=== PATIENT | female | born 1945 | race Hispanic/Latino ===

== ENCOUNTER 2017-06-03 13:44 | Emergency (ER) | payer MEDICARE ==
[~2017-06-03] VITALS: Ht 157.5 cm; Wt 62.1 kg
[~2017-06-03 13:44] MED LIST: ASPIRIN81 MG PO; COLACE100 MG PO; PEPCID20 MG PO; SENNA LAX8.6 MG PO; TEMAZEPAM15 MG PO; ZOFRAN ODT4 MG PO
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
[2017-06-03 15:15] VITALS: BP 136/78
== END 2017-06-03 15:00 | disposition home or self-care (01) ==
LOC: FSED 13:44
DX: R53.1 Weakness (principal); R20.9 Unspecified disturbances of skin sensation; M79.662 Pain in left lower leg; M79.672 Pain in left foot; R26.2 Difficulty in walking, not elsewhere classified; M62.838 Other muscle spasm
CPT/HCPCS: 70450; 80053; 85025; 99283

== ENCOUNTER 2017-09-14 13:39 | Emergency (ER) | payer MEDICARE ==
[~2017-09-14] VITALS: Ht 157.5 cm; Wt 63.5 kg
[2017-09-14] MEDS ORDERED: GABAPENTIN100 MG PEG (14:11)
[2017-09-14] MEDS ORDERED: TETANUS/DIPHTHERIA TOX ADULT 0.5 ML SYR IM ONE (14:45)
== END 2017-09-14 15:26 | disposition home or self-care (01) ==
LOC: FSED 13:39
DX: S80.212A Abrasion, left knee, initial encounter (principal); S80.211A Abrasion, right knee, initial encounter; W01.0XXA Fall on same level from slipping, tripping and stumbling without subsequent striking against object, initial encounter; Y93.01 Activity, walking, marching and hiking; Y92.481 Parking lot as the place of occurrence of the external cause; G62.9 Polyneuropathy, unspecified
CPT/HCPCS: 90471; 90714; 99284

== ENCOUNTER 2018-04-29 12:08 | Emergency (ER) | payer MEDICARE ==
[~2018-04-29] VITALS: Ht 157.5 cm; Wt 63.5 kg
[~2018-04-29 12:08] MED LIST changes: +GABAPENTIN100 MG PEG
[2018-04-29] MEDS ORDERED: MAGNESIUM/ALUMINUM/SIMETHICONE 30 ML UDC PO ONE (12:45)
[2018-04-29] MEDS ORDERED: ASPIRIN 325 MG TAB EC PO STA (12:45)
[2018-04-29] MEDS ORDERED: LIDOCAINE VISC 2% SOLN 15 ML UDC PO ONE (12:45)
--- NOTE | 2018-04-29 13:13 | Diagnostic Imaging Report ---
EXAMINATION: CXR 2 VIEW - HOPD INDICATION: Chest pain. COMPARISON: Chest radiograph 01/05/2017. FINDINGS: TUBES and LINES: None. LUNGS: Lungs are well inflated. Lungs are clear. There is no evidence of pneumonia or pulmonary edema. PLEURA: No pleural effusion or pneumothorax. HEART AND MEDIASTINUM: The cardiomediastinal silhouette is unremarkable. Atherosclerotic calcifications of the aorta. BONES AND SOFT TISSUES: No acute osseous abnormality. Diffuse osteopenia. UPPER ABDOMEN: No free air under the diaphragm. IMPRESSION: No acute radiographic abnormality. Signed by: Dr. Rufus Pena MD on 04/29/2018 1:09 PM
== END 2018-04-29 14:02 | disposition home or self-care (01) ==
LOC: FSED 12:08
DX: R07.89 Other chest pain (principal); K74.60 Unspecified cirrhosis of liver; B19.20 Unspecified viral hepatitis C without hepatic coma
CPT/HCPCS: 71046; 80053; 82553; 84484; 85025; 93005; 99284

== ENCOUNTER 2018-07-12 18:20 | Observation (INO) | payer MEDICARE ==
[~2018-07-12] VITALS: Ht 154.9 cm; Wt 56.7 kg
--- NOTE | 2018-07-12 01:23 | NUR ---
PT IS TRANSFERRED FROM [facility] .PT IS AOX3 AMBULATE .PT HAS RT NECK SWELLING .DENIES PAIN AT THIS TIME .PT IS RT AC 22 G .RESPIRATIONS ARE EVEN AND UNLABORED .SKIN WARM AND DRY TO TOUCH .ASSESSMENT DONE .SIDE RAILS UP .BED LOWEST POSITION .CALL LIGHT WITH IN REACH .CONTINUE TO MONITOR
[2018-07-12] MEDS ORDERED: KETOROLAC TROMETHAMINE 30 MG/ML VIAL IV STA (18:38)
[2018-07-12] MEDS ORDERED: ONDANSETRON HCL INJ 2MG/ML 2ML 2 MG/ML VIAL IV STA (18:38)
--- NOTE | 2018-07-12 18:52 | NUR ---
REPORT TO ROBERT LINN
[2018-07-12] MEDS ORDERED: SODIUM CHLORIDE 0.9% 1000 ML BAG IV STA (19:02)
[2018-07-12] MEDS ORDERED: CLINDAMYCIN 300MG 50 ML IV STA (19:49)
--- NOTE | 2018-07-12 20:18 | Diagnostic Imaging Report ---
Examination:CT CERVICAL SPINE WITH CONTRAST - HOPD History: Right neck swelling Comparison studies: None Technique: Axial images from the skull base to the thoracic inlet Coronal and sagittal reformatted images. Dose modulation, iterative reconstruction, and/or weight based adjustment of the mA/kV was utilized to reduce the radiation dose to as low as reasonably achievable. Intravenous contrast: 100mL of Isovue 370. Findings: Soft tissues: No abnormalities. Aerodigestive tract: No abnormality. Lymph nodes: No radiographically significant adenopathy. Vessels: Arteries and veins are patent. Thyroid gland: Normal in size and homogeneous. Submandibular glands: Normal in size and homogeneous on the left. Enlarged right gland with intra and extraglandular ductal dilation with several stones in the hilus of the gland and proximal and distal ducts. Parotid glands: Normal in size and homogeneous. Orbits: No abnormalities. Paranasal sinuses: Clear. Temporal bones: No abnormalities. Skull base and facial bones: Intact. Cervical spine: No disc bulge or herniation or foraminal or canal stenosis. Visualized lung apices: No abnormalities. IMPRESSION: Right submandibular sialolithiasis. Signed by: Dr. Rossy Devries M.D. on 07/12/2018 8:14 PM
[2018-07-12] MEDS ORDERED: ACETAMINOPHEN/CODEINE 300MG - 30MG TAB PO PRN (20:45)
[2018-07-12] MEDS ORDERED: ONDANSETRON HCL INJ 2MG/ML 2ML 2 MG/ML VIAL IV PRN (20:45)
[2018-07-12] MEDS: CLINDAMYCIN 300MG 50 ML IV SCH (21:08)
[2018-07-12 22:02] VITALS: BP 157/75
[2018-07-12] MEDS: SODIUM CHLORIDE 0.9% 1000ML 1,000 ML IV SCH (23:00)
[2018-07-13 00:59] VITALS: BP 157/75
[2018-07-13] MEDS: CLINDAMYCIN 300MG 50 ML IV SCH ×2 (03:11→09:18)
[2018-07-13 04:00] VITALS: BP 121/65
[2018-07-13] MEDS: SODIUM CHLORIDE 0.9% 1000ML 1,000 ML IV SCH (04:38)
--- NOTE | 2018-07-13 06:07 | NUR ---
PT RESTING .DENIES PAIN .CALL LIGHT WITH IN REACH .CONTINUE TO MONITOR
--- NOTE | 2018-07-13 07:15 | NUR ---
REPORT GIVEN TO THE ONCOMING NURSE
[2018-07-13 07:24] LABS: BASOPHILS % 0.4 % (0.0-1.0); EOSINOPHILS # (AUTO) 0.2 (0.0-0.4); HEMATOCRIT 32.1 % (34.2-44.1); HEMOGLOBIN 10.7 g/dL (12.0-16.0); LYMPHOCYTES # (AUTO) 1.3 (1.0-3.2); LYMPHOCYTES % 17.3 % (18.0-39.1); MEAN CORPUSCULAR HEMOGLOBIN 30.7 pg (28-32); MEAN CORPUSCULAR HGB CONC 33.3 g/dL (31-35); MEAN CORPUSCULAR VOLUME 92.2 fL (81-99); MONOCYTES # (AUTO) 0.7 (0.2-0.8); MONOCYTES % 8.9 % (4.4-11.3); NEUTROPHILS # (AUTO) 5.3 (2.1-6.9); NEUTROPHILS % 71.1 % (38.7-80.0); PLATELET COUNT 129 x10e3/uL (140-360); RED BLOOD COUNT 3.48 x10e6/uL (3.6-5.1); RED CELL DISTRIBUTION WIDTH 13.3 % (11.7-14.4)
[2018-07-13 07:37] LABS: ANION GAP 10.3 mmol/L (8-16); BLOOD UREA NITROGEN 11 mg/dL (7-26); BUN/CREATININE RATIO 15 (6-25); CALCIUM 8.8 mg/dL (8.4-10.2); CARBON DIOXIDE 24 mmol/L (22-29); CHLORIDE 106 mmol/L (98-107); CREATININE, SERUM 0.71 mg/dL (0.57-1.11); EST GLOMERULAR FILTRATION RATE > 60 ML/MIN (60-); GLUCOSE 112 mg/dL (74-118); POTASSIUM 3.3 mmol/L (3.5-5.1); SODIUM 137 mmol/L (136-145)
[2018-07-13 08:01] VITALS: BP 125/58
--- NOTE | 2018-07-13 08:12 | NUR ---
patient siting up in bed eating break fast, Alert with no distress, call light in reach
[2018-07-13 09:41] VITALS: BP 125/58
[2018-07-13] MEDS ORDERED: POTASSIUM CHLORIDE 20 MEQ TAB CR PO STA (11:08)
[2018-07-13] MEDS ORDERED: ACETAMINOPHEN 325 MG TAB PO PRN (11:15)
[2018-07-13] MEDS ORDERED: LACTOBACILLUS ACIDOPHILUS CAPSULE PO SCH (11:15)
[2018-07-13] MEDS ORDERED: TYLENOL WITH C1 EACH PO (11:55)
[2018-07-13] MEDS ORDERED: CLINDAMYCIN HC150 MG PO (11:56)
[2018-07-13 11:57] VITALS: BP 128/64
[2018-07-13] MEDS ORDERED: ACIDOPHILUS1 EAC1 PO (11:57)
--- NOTE | 2018-07-13 14:21 | NUR ---
Patient discharged Home, Alert with no distress, prescription given and verbalized understanding, IV canula removed with tip intact, no ss of infiltration noted, denies any pain or SOB, Daughter at bed side to pick her.
--- NOTE | 2018-07-14 06:56 | Discharge Summary ---
PRIMARY CARE DOCTOR: Dr. An Jj. FINAL DIAGNOSIS: Acute sialadenitis, resolving. SECONDARY DIAGNOSES: 1. Hep C cirrhosis, treated. 2. Hypokalemia. CONSULTANTS: None. PROCEDURE/STUDIES: Performed neck CT. HISTORY: Per H and P. HOSPITAL COURSE: The patient was monitored overnight. She got better and was deemed stable for discharge home. Her hypokalemia was repleted. The patient will go home on clindamycin for four more days to complete a five day course, Tylenol No.3, 20 pills, no refills were prescribed as well along with lactobacillus. The patient will follow up with her primary care doctor in a week. I have also updated her primary care doctor about this hospitalization. CONDITION ON DISCHARGE: Improved. DISCHARGE MEDICATIONS: Please see medication reconciliation form. MD RUDY Rick/CAITY /[id number] cc: [facility]
== END 2018-07-13 14:59 | disposition home or self-care (01) ==
LOC: FSED 18:20 → INTOOBSV 20:41 → ERHOLD 20:41 → MED/SURG3 22:03
PROVIDERS: ADMIT Internal Medicine; ATTEND Internal Medicine
DX: K11.21 Acute sialoadenitis (principal); K11.5 Sialolithiasis; Z88.1 Allergy status to other antibiotic agents; Z88.2 Allergy status to sulfonamides; Z88.8 Allergy status to other drugs, medicaments and biological substances; K74.60 Unspecified cirrhosis of liver; Z86.19 Personal history of other infectious and parasitic diseases; E87.6 Hypokalemia
CPT/HCPCS: 36415; 72126; 80048 ×2; 80076; 81003; 85025 ×2; 87040; 96360; 96361; 99284; G0378 ×2; J1885; J2405; J7030 ×2

== ENCOUNTER 2019-02-09 09:58 | Emergency (ER) | payer MEDICARE ==
[~2019-02-09] VITALS: Ht 154.9 cm; Wt 56.7 kg
[~2019-02-09 09:58] MED LIST changes: +ACIDOPHILUS1 EAC1 PO; +CLINDAMYCIN HC150 MG PO; +TYLENOL WITH C1 EACH PO
[2019-02-09] MEDS ORDERED: SODIUM CHLORIDE 0.9% 1000ML 1,000 ML IV SCH (10:15)
[2019-02-09] MEDS ORDERED: PANTOPRAZOLE 40 MG 10ML VIAL IV ONE (10:30)
[2019-02-09] MEDS ORDERED: ONDANSETRON HCL INJ 2MG/ML 2ML 2 MG/ML VIAL IV ONE (10:30)
[2019-02-09 10:41] LABS: BASOPHILS % 0.6 % (0.0-1.0); EOSINOPHILS # (AUTO) 0.2 (0.0-0.4); EOSINOPHILS % 4.3 % (0.0-6.0); HEMATOCRIT 36.9 % (34.2-44.1); HEMOGLOBIN 12.5 g/dL (12.0-16.0); LYMPHOCYTES # (AUTO) 1.3 (1.0-3.2); LYMPHOCYTES % 23.9 % (18.0-39.1); MEAN CORPUSCULAR HGB CONC 33.9 g/dL (31-35); MEAN CORPUSCULAR VOLUME 91.6 fL (81-99); MONOCYTES # (AUTO) 0.3 (0.2-0.8); MONOCYTES % 5.8 % (4.4-11.3); NEUTROPHILS # (AUTO) 3.5 (2.1-6.9); PLATELET COUNT 152 x10e3/uL (140-360); RED BLOOD COUNT 4.03 x10e6/uL (3.6-5.1); RED CELL DISTRIBUTION WIDTH 12.8 % (11.7-14.4)
[2019-02-09 10:42] LABS: BILIRUBIN,URINE NEGATIVE (NEGATIVE); CLARITY,URINE CLEAR (CLEAR); COLOR,URINE YELLOW (YELLOW); KETONES,URINE NEGATIVE (NEGATIVE); LEUKOCYTE ESTERASE ,URINE NEGATIVE (NEGATIVE); NITRITE,URINE NEGATIVE (NEGATIVE); PROTEIN,URINE DIPSTICK NEGATIVE (NEGATIVE); URINE UROBILINOGEN 0.2 mg/dL (0.2 - 1)
[2019-02-09 10:50] LABS: INR 0.99; PROTHROMBIN TIME 13.6 seconds (11.9-14.5)
[2019-02-09 10:51] LABS: PARTIAL THROMBOPLASTIN TIME 27.4 seconds (23.8-35.5)
[2019-02-09 11:01] LABS: RBC,URINE 0-5 /HPF (0-5); WBC,URINE (MAN) 0-5 /HPF (0-5)
[2019-02-09 11:01] LABS: ALANINE AMINOTRANSFERASE 18 IU/L (0-55); ALBUMIN 3.9 g/dL (3.5-5.0); ALBUMIN/GLOBULIN RATIO 1.1 (0.8-2.0); ALKALINE PHOSPHATASE 67 IU/L (40-150); AMYLASE 82 U/L (25-125); ANION GAP 14.7 mmol/L (8-16); BLOOD UREA NITROGEN 11 mg/dL (7-26); BUN/CREATININE RATIO 15 (6-25); CALCIUM 9.3 mg/dL (8.4-10.2); CARBON DIOXIDE 23 mmol/L (22-29); CHLORIDE 103 mmol/L (98-107); CREATINE KINASE 61 IU/L (29-168); CREATININE, SERUM 0.72 mg/dL (0.57-1.11); EST GLOMERULAR FILTRATION RATE > 60 ML/MIN (60-); GLUCOSE 103 mg/dL (74-118); LIPASE 30 U/L (8-78); MAGNESIUM 1.7 MG/DL (1.3-2.1); POTASSIUM 3.7 mmol/L (3.5-5.1); SODIUM 137 mmol/L (136-145)
[2019-02-09 11:02] LABS: BACTERIA,URINE FEW /HPF; EPITHELIAL CELLS,URINE FEW /LPF
--- NOTE | 2019-02-09 11:12 | NUR ---
ASSISTED TITO Montero WITH RECTAL EXAM
--- NOTE | 2019-02-09 11:40 | Diagnostic Imaging Report ---
EXAMINATION: CHEST SINGLE (PORTABLE) INDICATION: Nausea, vomiting, diarrhea. COMPARISON: Chest radiograph 04/29/2018. FINDINGS: TUBES and LINES: None. LUNGS: Lungs are well inflated. Mild patchy right basilar opacity, likely atelectasis. There is no evidence of lobar pneumonia or pulmonary edema. PLEURA: No pleural effusion or pneumothorax. HEART AND MEDIASTINUM: The cardiomediastinal silhouette is unremarkable. There are atherosclerotic calcifications within the aorta. BONES AND SOFT TISSUES: No acute osseous abnormality. Diffuse osteopenia. UPPER ABDOMEN: No free air under the diaphragm. IMPRESSION: No acute radiographic abnormality. Signed by: Dr. Rufus Pena MD on 02/09/2019 11:36 AM
[2019-02-09 13:02] VITALS: BP 129/66
== END 2019-02-09 13:03 | disposition home or self-care (01) ==
LOC: ER 09:58
DX: R11.2 Nausea with vomiting, unspecified (principal); R19.7 Diarrhea, unspecified; R10.33 Periumbilical pain; K76.89 Other specified diseases of liver
CPT/HCPCS: 36415; 71045; 80053; 81001; 82150; 82270; 82550; 82553; 83690; 83735; 83880; 84484; 85025; 85610; 85730; 86850; 86900; 87086; 93005; 99284; C9113; J7030

== ENCOUNTER 2020-04-22 13:06 | Emergency (ER) | payer MEDICARE ==
[~2020-04-22] VITALS: Ht 154.9 cm; Wt 56.7 kg
== END 2020-04-22 16:22 | disposition home or self-care (01) ==
LOC: FSED 13:40
DX: S00.83XA Contusion of other part of head, initial encounter (principal); S40.011A Contusion of right shoulder, initial encounter; S80.01XA Contusion of right knee, initial encounter; S13.4XXA Sprain of ligaments of cervical spine, initial encounter; S33.5XXA Sprain of ligaments of lumbar spine, initial encounter; W00.1XXA Fall from stairs and steps due to ice and snow, initial encounter; Y93.01 Activity, walking, marching and hiking; Y92.008 Other place in unspecified non-institutional (private) residence as the place of occurrence of the external cause; B19.20 Unspecified viral hepatitis C without hepatic coma
CPT/HCPCS: 70450; 71045; 72110; 72125; 99283

== ENCOUNTER 2021-03-13 12:53 | Emergency (ER) | payer MEDICARE ==
[~2021-03-13] VITALS: Ht 154.9 cm; Wt 58.7 kg
[2021-03-13] MEDS ORDERED: MEDROL4 MG PO (13:16)
[2021-03-13] MEDS ORDERED: METHOCARBAMOL750 MG PO (13:16)
== END 2021-03-13 13:30 | disposition home or self-care (01) ==
LOC: FSED 13:03
DX: M54.32 Sciatica, left side (principal); Z86.19 Personal history of other infectious and parasitic diseases; Z88.1 Allergy status to other antibiotic agents; Z88.2 Allergy status to sulfonamides; Z88.8 Allergy status to other drugs, medicaments and biological substances
CPT/HCPCS: 99282